=== PATIENT | female | born 1955 | race Caucasian/White ===

== ENCOUNTER 2018-03-13 11:12 | Outpatient (REF) | payer MEDICAID, SELFPAY ==
--- NOTE | 2018-03-13 10:00 | PAPFT_PTH ---
PATIENT: Brooke Urrutia LOC: [facility]#:[id number] AGE/SX: 62/F ROOM: RE03/13/[address]: Jessica Barrera : 1955 BED: DIS: 03/13/2018 SPEC #: [id number] RECD: 03/14/18 12:43 STATUS: [place] #: [id number] JAREN: 03/13/18 10:[address]: Jessica Elizabeth DEPT: COUNT INCLUDES THE [facility] Cytology RECD BY: Danielle Jacome Tissues: 1 - CX/ENDOCX FOR PAP SMEARS Procedures: PAP THIN PREP/UVM Screening HPV DNA PROBE Comments: [id number]
[2018-03-13 22:18] LABS: Cholesterol 170 mg/dL (50-200); HDL Cholesterol 49 mg/dL (40-60); LDL CHOLESTEROL 111 mg/dL (<100); Triglyceride 126 mg/dL (30-150)
== END 2018-03-13 11:32 ==
LOC: NCHCN 11:12
PROVIDERS: PCP Nurse Practitioner Family; Visit Provider Nurse Practitioner Family
DX: Z13.220 Encounter for screening for lipoid disorders (principal); Z00.00 Encounter for general adult medical examination without abnormal findings; Z12.4 Encounter for screening for malignant neoplasm of cervix; Z11.51 Encounter for screening for human papillomavirus (HPV)
CPT/HCPCS: 80061; 83721; 88142; 87624

== ENCOUNTER 2024-01-17 09:05 | Outpatient (REF) | payer MEDICARE, SELFPAY ==
[2024-01-17 14:53] LABS: HCT 40.3 % (36.0-46.0); HGB 12.9 g/dL (11.2-15.7); MCH 28.5 pg (27.0-33.0); MCV 89 fL (80-95); Platelet Count 235 10^3/uL (130-400); RBC 4.52 10^6/uL (3.93-5.22); RDW 13.4 % (11.7-14.6); RDW-SD 44.2 fL; WBC 6.87 10^3/uL (4.4-10.8)
[2024-01-17 15:13] LABS: ALT 30 U/L (14-59); AST 17 U/L (15-37); Albumin 3.6 g/dL (3.4-5.0); Alkaline Phosphatase 88 U/L (46-116); Anion Gap 10.2 mmol/L (3-11); BUN 15 mg/dL (7-18); Bilirubin, Total 0.46 mg/dL (0.2-1.0); CO2 26.8 mmol/L (21.0-32.0); CREATININE 0.9 mg/dL (0.55-1.02); Calcium 8.3 mg/dL (8.5-10.1); Calculated LDL 93 mg/dL (<100); Chloride 106 mmol/L (98-107); Cholesterol 167 mg/dL (<200); Glucose 81 mg/dL (74-106); HDL Cholesterol 60 mg/dL (40-60); Potassium 4.1 mmol/L (3.5-5.1); Sodium 143 mmol/L (136-145); Total Protein 6.9 g/dL (6.4-8.2); Triglyceride 72 mg/dL (<150)
== END 2024-01-17 09:06 | disposition home or self-care (01) ==
LOC: NCHCN 09:05
PROVIDERS: PCP Nurse Practitioner Family; Visit Provider Nurse Practitioner Family
DX: Z00.00 Encounter for general adult medical examination without abnormal findings (principal)
CPT/HCPCS: 80053; 80061; 85027; 84443

== ENCOUNTER 2024-02-03 15:20 | Outpatient (REF) | payer MEDICARE, SELFPAY ==
--- NOTE | 2024-02-03 10:30 | PAPFT_PTH ---
PATIENT: Brooke Urrutia LOC: [facility]#:[id number] AGE/SX: 68/F ROOM: RE02/03/[address]: Jessica Barrera : 1955 BED: DIS: 02/03/2024 SPEC #: [id number] RECD: 02/03/24 18:01 STATUS: [place] REQ #: [id number] JAREN: 02/03/24 10:[address]: Jessica Elizabeth DEPT: [facility] Cytology RECD BY: Danielle Jacome Tissues: 1 - CX/ENDOCX FOR PAP SMEARS Procedures: PAP THIN PREP/UVM Screening HPV DNA PROBE Comments: [id number] (HPV 16 & 18/45)
== END 2024-02-03 15:21 | disposition home or self-care (01) ==
LOC: NCHCN 15:20
PROVIDERS: PCP Nurse Practitioner Family; Visit Provider Nurse Practitioner Family
DX: Z12.4 Encounter for screening for malignant neoplasm of cervix (principal); B96.29 Other Escherichia coli [E. coli] as the cause of diseases classified elsewhere; R82.89 Other abnormal findings on cytological and histological examination of urine
CPT/HCPCS: 88142; 87624

== ENCOUNTER 2024-03-31 16:19 | Outpatient (REF) | payer MEDICARE, SELFPAY ==
[2024-03-31 15:19] LABS: Anion Gap 5.6 mmol/L (3-11); BUN 12 mg/dL (7-18); CO2 28.4 mmol/L (21.0-32.0); CREATININE 0.9 mg/dL (0.55-1.02); Calcium 8.7 mg/dL (8.5-10.1); Chloride 104 mmol/L (98-107); Glucose 65 mg/dL (74-106); Magnesium 2.2 mg/dL (1.8-2.4); PHOSPHORUS 4.4 mg/dL (2.6-4.7); Potassium 3.7 mmol/L (3.5-5.1); Sodium 138 mmol/L (136-145); Vitamin D 25 Total 34.9 ng/mL (30-100)
--- OUTSIDE RECORDS SUMMARY | 2024-03-31 16:35 | XMS_ITS ---
Author Organization Unknown Address [address] [place] [phone] Phone Care Team Providers Care Scientific Artist Name Role Phone TYLER Feldman Attending Unavailable Results MM SCREENING BILAT MAMMO W T BRIA W CAD* - Completed: 12/11/2023 15:38 LOINC: [facility] [place], [place] [address] RADIOLOGY VEGETABLE GRADER REPORT Patient Name: MARIA ESTHER CASTILLO MRN: Sex: : Age: [id number] F 1955 68 Account: Accession: Admit: StayType: [id number] 12/11/2023 O Ordered: Order ID: Submitted: Ordering Provider: 12/11/2023 15:21 [id number] KT DORIE SCOTT Completed: Technologist: Resulted: 12/11/2023 15:29 [facility] 12/12/2023 11:13 EXAMINATION: MM SCREENING BILAT MAMMO W ASH W CAD REASON FOR EXAM: Screening baseline TECHNIQUE: CC and MLO views were obtained of BOTH breasts. 2D and 3D tomosynthesis images were obtained. Computer aided detection was used. COMPARISON: This is a baseline study. BREAST DENSITY: The breast tissue is heterogeneously dense, which may obscure small masses. FINDINGS: Linear calcifications within the lower inner left breast, benign in appearance. Stable parenchymal pattern without suspicious microcalcifications, discrete masses, architectural distortion or significant asymmetry. IMPRESSION: No mammographic evidence of malignancy. Routine screening mammography is recommended. FINAL ASSESSMENT: BI-RADS Category 2: Benign * Regular screening mammograms starting at age 40 reduce the risk of from breast cancer. * Individuals should discuss the risks and benefits with their provider to determine their preferred breast cancer screening schedule, and at what age screening should stop. * Individuals should report any breast changes to a health care provider right away. * Some Individuals, because of their family history, a genetic tendency, or other factors, should consider being screened with annual breast MRI as well as with mammograms. * Screening mammography may not detect 10-15% of?breast cancers. Thank you for letting us participate in the care of this patient. If you are a health care provider and have any questions regarding this report, please contact the number below. For patients who have questions please contact the health care services manager that requested your imaging first. Electronically signed by: Carolina Ibanez [facility] ([phone]), at 12/12/2023 11:13 AM Social History Type Status Start Date End Date Code Code Syst em Smoking History Never smoker (Never Smoked) [id number] SNOMED CT Sex Female Hospital Discharge Instructions Should you have any questions prior to discharge, please contact a member of your healthcare team. If you have left the hospital and have any questions, please contact your primary care physician. Reason For Referral No Data Found Allergies and Adverse Reactions Allergy Substance Reaction Severity Start Date Concern Status Code Code System PENICILLINS (CLASS) UNKNOWN (SNOMED-CT: null) Active 89293 RxNorm ERYTHROMYCIN UNKNOWN (SNOMED-CT: null) Active 4053 RxNorm SULFA (SULFONAMIDE ANTIBIOTICS) UNKNOWN (SNOMED-CT: null) Active Plan of Treatment BONE DENSITY DEXA SPINE & HIP 4 MM SCREEN BILAT 12/11/2023 Encounters Encounter Diagnosis Start Date Code Code Sys tem Encounter for screening mamm ogram for malignant neoplasm of breast 12/11/2023 SNOMED-CT Personal Care Team Section Performer Name Performer Role Active Date Inactive Da te
--- OUTSIDE RECORDS SUMMARY | 2024-03-31 16:35 | XMS_ITS | Encounter Summary ---
Author Organization [facility] [place] [address] Care Team Providers Care Nurse Practitioner Name Role Phone Unavailable Primary Care Provider Unavailabl e Encounter Details Date Type Department Care Team (Late st Contact Info) Description 03/18/2024 Interpretation Only [facility] [place] [facility] in [address] [phone] Jessica Elizabeth APRN [address] [place] [address] Social History Tobacco Use Types Packs/Day Years Used Date Smoking Tobacco: Never Assessed Sex and Gender Information Value Date Recorded Sex Assigned at Not on file Gender Identity Not on file Sexual Orientation Not on file documented as of this encounter Plan of Treatment Not on file documented as of this encounter Procedures Procedure Name Priority Date/Time Associated Diagnosis Comments DXA CENTRAL SPINE, HIP, AND/OR WHOLE BODY (GENERIC) Routine 03/18/2024 9:04 AM EST documented in this encounter Results * DXA Central Spine, Hip, and/or Whole Body (Generic) (03/18/2024 9:04 AM EST) PT CLASS O RAD ADMITDTTM [id number] RAD PT RAD INFO [id number]^ROQUE RG^JESSICA^B RAD EXAM DESC XDXAC^BD DXA BONE DENSITY HIP AND SPINE^RIS RAD WORKSTATION ID [id number] RAD Anatomical Region Laterality Modality C-spine, Hip N/A Radiographic Priscila ging Impressions 03/18/2024 10:53 AM EST -3.5. IMPRESSION: Osteoporotic at both the left femoral neck and lumbar spine. Baseline evaluation for us. ___ Prevent Fractures! PATIENTS NOT ON TREATMENT: For patients with osteopenia, *the fracture risk calculated by FRAX is displayed below*. Offer treatment for osteoporosis (calcium, vitamin D, and medication) if: * ??T less than or equal to -2.5, after excluding or treating secondary causes * ??FRAX gives a 10-year risk of hip fracture greater than or equal to 3% or major osteoporotic fracture (MOF) greater than or equal to 20% * ??Fragility fracture, regardless of T score (fracture without trauma, or from trauma equivalent to falling from standing height or less) If not treating, repeat DXA at the following intervals: * ??T greater than or equal to -1(normal): Repeat DXA in 10-15 years * ??T -1.0 to -1.5 (mild osteopenia): Repeat DXA in 10-15 years * ??T -1.5 to 2.0 (moderate osteopenia): Repeat DXA in 5 years * ??T -2.0 to -2.5 (severe osteopenia): Repeat DXA in 2 years The bone density raw data are listed below. Bone density raw data: Thank you for letting us participate in the care of this patient. ??If you are a health care provider and have any questions regarding this report, please contact the number below. ??For patients who have questions please contact the health healthcare risk control consultant that requested your imaging first. ? Electronically signed by: Bernardino Aparicio MD, [facility] ([phone]), at 03/18/2024 10:53 AM Narrative 03/18/2024 10:53 AM EST EXAMINATION: BD DXA BONE DENSITY HIP AND SPINE CLINICAL HISTORY: ??Reason for Spine: ??Menopausal Add'l Info: TECHNIQUE: Scans were acquired at the lumbar spine, left hip hip. COMPARISON: None FINDINGS: Bone density at the left femoral neck. Measured 0.519 g/sq cm, correlating with an osteoporotic T score of -3.0. The L1-L4 BMD is 0.660 g/sq cm, correlating with an osteoporotic T score of Procedure Note Bernardino Aparicio MD - 03/18/2024 EXAMINATION: BD DXA BONE DENSITY HIP AND SPINE CLINICAL HISTORY: Reason for Spine: Menopausal Add'l Info: TECHNIQUE: Scans were acquired at the lumbar spine, left hip hip. COMPARISON: None FINDINGS: Bone density at the left femoral neck. Measured 0.519 g/sq cm, correlating with an osteoporotic T score of -3.0. The L1-L4 BMD is 0.660 g/sq cm, correlating with an osteoporotic T scoreof IMPRESSION -3.5. IMPRESSION: Osteoporotic at both the left femoral neck and lumbar spine. Baselineevaluation for us. ___ Prevent Fractures! PATIENTS NOT ON TREATMENT: For patients with osteopenia, *the fracture risk calculated by FRAX isdisplayed below*. Offer treatment for osteoporosis (calcium, vitamin D, and medication)if: * T less than or equal to -2.5, after excluding or treating secondarycauses * FRAX gives a 10-year risk of hip fracture greater than or equal to 3%or major osteoporotic fracture (MOF) greater than or equal to 20% * Fragility fracture, regardless of T score (fracture without trauma, orfrom trauma equivalent to falling from standing height or less) If not treating, repeat DXA at the following intervals: * T greater than or equal to -1(normal): Repeat DXA in 10-15 years * T -1.0 to -1.5 (mild osteopenia): Repeat DXA in 10-15 years * T -1.5 to 2.0 (moderate osteopenia): Repeat DXA in 5 years * T -2.0 to -2.5 (severe osteopenia): Repeat DXA in 2 years The bone density raw data are listed below. Bone density raw data: Thank you for letting us participate in the care of this patient. If youare a health care provider and have any questions regarding this report,please contact the number below. For patients who have questions please contactthe health healthcare risk control consultant that requested your imaging first. Jessica Elizabeth APRN IMG DEXA ORDERABLES documented in this encounter Visit Diagnoses Not on filedocumented in this encounter
--- OUTSIDE RECORDS SUMMARY | 2024-03-31 16:35 | XMS_ITS | Encounter Summary ---
Author Organization [facility] Address [address] [place] [address] Care Team Providers Care Retail Performance Specialist Name Role Phone Unavailable Primary Care Provider Unavailabl e Encounter Details Date Type Department Care Team (Late st Contact Info) Description 02/04/2024 Lab Requisition [facility] Pathology & Laboratory Medicine - [facility] [address] [place] [address] Jessica Elizabeth, INTERIOR DESIGN PROJECT MANAGER [address] [place], [place] [id number] Encounter for general adult medical examination without abnormal findings Social History Tobacco Use Types Packs/Day Years Used Date Smoking Tobacco: Never Assessed Interpersonal Safety Answer Date Record ed Physically Hurt Never 12/06/2019 Verbally Threaten Not on file 12/06/2019 Comments Unknown Sex and Gender Information Value Date Recorded Sex Assigned at Not on file Legal Sex Female 18:28 EST Gender Identity Not on file Sexual Orientation Not on file documented as of this encounter Plan of Treatment Not on file documented as of this encounter Procedures Procedure Name Priority Date/Time Associated Diagnosis Comments PAP TEST Today 02/03/2024 10:30 EDT Encounter for general adult medical examination without abnormal findings HPV DNA DETECTION WITH GENOTYPING, PCR Today 02/03/2024 10:30 EDT Encounter for general adult medical examination without abnormal findings documented in this encounter Results * (ABNORMAL) HPV DNA DETECTION WITH GENOTYPING, PCR (02/03/2024 10:30 EDT) HPV High Risk type 16, PCR Negative Negative 02[facility]13[facility]2024 14:[facility] HPV High Risk type 18, PCR Negative Negative 02/13/2024 14:36 [facility] HPV other High Risk types, PCR Positive(A) Negative 02/13/2024 14:36 [facility] Comment: Positive for one of the following Other High Risk HPV types: ??31,33, 35, 39, 45, 51, 52, 56, 58, 59, 66 and 68. Pap Test CERVIX UTERI STRUCTURE / Unknown 02/03/2024 10:30 EDT 02/12/2024 14:28 EDT us Jessica Elizabeth NP MICROBIOLOGY - GENERAL ORDERA BLES Final Result [facility] [address] [place] [address] * PAP TEST (02/03/2024 10:30 EDT) Specimens A. Cervix and/or Endocervix , ThinPrep Imaging System with Manual Evaluation 02/13/2024 14:36 [facility] Specimen Adequacy Satisfactory for Evaluation - assessment of transformation zone component not applicable ( e.g. atrophy, vaginal sample, hysterectomy) 02/13/2024 14:36 [facility] General Categorization Negative for intraepithelial lesion or malignancy 02/13/2024 14:36 [facility] Attestation . 02/13/2024 14:36 [facility] at 1436 Clinical History SEE BELOW 02/13/20 14:36 [facility] Performing Lab [facility] 02/13/2024 14:36 [facility] Scanned Images 02/13/2024 14:36 [facility] HPV High Risk type 16, PCR Negative 02/13/2024 14:36 [facility] HPV High Risk type 18, PCR Negative 02/13/2024 14:36 [facility] HPV Other High Risk Types, PCR Positive Positive for one of the following Other High Risk HPV types: 31,33, 35, 39, 45, 51, 52, 56, 58, 59, 66 and 68. 02/13/2024 14:36 EDT [facility] Pap Test CERVIX UTERI STRUCTURE / Unknown 02/03/2024 10:30 EDT 02/04/2024 9:32 EDT us Jessica Elizabeth NP PATHOLOGY ORDERABLES Final Re sult [facility] [address] [place] [address] documented in this encounter Visit Diagnoses Diagnosis Encounter for general adult medical examination without abnormal findings Unspecified general medical examination documented in this encounter
--- OUTSIDE RECORDS SUMMARY | 2024-03-31 16:35 | XMS_ITS | Encounter Summary ---
Author Organization [facility] Address [address] [place] [address] Care Team Providers Care Patient Relations Director Name Role Phone Unavailable Primary Care Provider Unavailabl e Reason for Referral * (Routine/Next Available) - Receiving Office to Obtain Authorization Specialty Diagnoses / Procedures Referred By Contac t Referred To Contact Procedures XR OUTSIDE IMAGES DEXA Imaging, External Referral ID Status Reason Start Date Expiration Date Visits Requested Visits Authorized [id number] Receiving Office to Obtain Authorization 4 1 1 Reason for Visit * (Routine/Next Available) - Receiving Office to Obtain Authorization Specialty Diagnoses / Procedures Referred By Contac t Referred To Contact Procedures XR OUTSIDE IMAGES DEXA Imaging, External Referral ID Status Reason Start Date Expiration Date Visits Requested Visits Authorized [id number] Receiving Office to Obtain Authorization 4 1 1 Encounter Details Date Type Department Care Team (Late st Contact Info) Description 1955 Hospital Encounter [facility] Radiology - Main [place] [address] [place] [address] Social History Tobacco Use Types Packs/Day Years [...] Procedure Name Priority Date/Time Associated Diagnosis Comments XR OUTSIDE IMAGES DEXA Routine 1955 8:39 EDT documented in this encounter Results * XR OUTSIDE IMAGES DEXA (1955 8:39 EDT) Narrative FRANDY - 03/26/2024 8:40 EST This is a non-reportable exam. us External Imaging IMG OTHER IMAGING ORDERABLES Fi nal Result FRANDY documented in this encounter Visit Diagnoses Not on filedocumented in this encounter
--- OUTSIDE RECORDS SUMMARY | 2024-03-31 16:35 | XMS_ITS | Encounter Summary ---
Author Organization [facility] [place] [address] Care Team Providers Care Finance Manager Name Role Phone Unavailable Primary Care Provider Unavailabl e Encounter Details Date Type Department Care Team (Late st Contact Info) Description 12/11/2023 Interpretation Only [facility] in [address] [phone] Jessica Elizabeth APRN [address] [place] [address] Social History Tobacco Use Types Packs/Day Years Used Date Smoking Tobacco: Never Assessed Sex and Gender Information Value Date Recorded Sex Assigned at Not on file Gender Identity Not on file Sexual Orientation Not on file documented as of this encounter Plan of Treatment Not on file documented as of this encounter Procedures Procedure Name Priority Date/Time Associated Diagnosis Comments MAMMO SCREENING CAD AND JERMAINE BILATERAL Routine 12/11/2023 3:38 PM EDT documented in this encounter Results * Mammo Screening Cad and Jermaine Bilateral (12/11/2023 3:38 PM EDT) PT CLASS O RAD ADMITDTTM [id number] RAD PT RAD MD INFO [id number]^WOHLBE RG^JESSICA^B RAD EXAM DESC MADDSCTO^MM SCREENING BILAT MAMMO W JERMAINE W CAD^RIS RAD WORKSTATION ID [id number] RAD Anatomical Region Laterality Modality Breast Bilateral Mammography Impressions 12/12/2023 11:13 AM EDT No mammographic evidence of malignancy. Routine screening mammography is recommended. FINAL ASSESSMENT: BI-RADS Category 2: Benign * ??Regular screening mammograms starting at age 40 reduce the risk of from breast cancer. * ??Individuals should discuss the risks and benefits with their provider to determine their preferred breast cancer screening schedule, and at what age screening should stop. * ??Individuals should report any breast changes to a health care provider right away. * ??Some Individuals, because of their family history, a genetic tendency, or other factors, should consider being screened with annual breast MRI as well as with mammograms. * ??Screening mammography may not detect 10-15% of?breast cancers. Thank you for letting us participate in the care of this patient. ??If you are a health care provider and have any questions regarding this report, please contact the number below. ??For patients who have questions please contact the health summer child caregiver that requested your imaging first. ? Electronically signed by: Carolina Ibanez [facility] ([phone]), at 12/12/2023 11:13 AM Narrative 12/12/2023 11:13 AM EDT EXAMINATION: MM SCREENING BILAT MAMMO W JERMAINE ??W CAD REASON FOR EXAM: Screening baseline TECHNIQUE: [...] discrete masses, architectural distortion or significant asymmetry. Procedure Note Carolina Ibanez MD - 12/12/2023 EXAMINATION: MM SCREENING BILAT MAMMO W JERMAINE W CAD REASON FOR EXAM: Screening baseline TECHNIQUE: CC and MLO views were obtained of BOTH breasts. 2D and 3D tomosynthesis images were obtained. Computer aided detection was used. COMPARISON: This is a baseline study. BREAST DENSITY: The breast tissue is heterogeneously dense, which may obscure smallmasses. FINDINGS: Linear calcifications within the lower inner left breast, benign inappearance. Stable parenchymal pattern without suspicious microcalcifications,discrete masses, architectural distortion or significant asymmetry. IMPRESSION No mammographic evidence of malignancy. Routine screening mammography is recommended. FINAL ASSESSMENT: BI-RADS Category 2: Benign * Regular screening mammograms starting at age 40 reduce the risk ofdeath from breast cancer. * Individuals should discuss the risks and benefits with their providerto determine their preferred breast cancer screening schedule, and at whatage screening should stop. * Individuals should report any breast changes to a health care providerright away. * Some Individuals, because of their family history, a genetic tendency,or other factors, should consider being screened with annual breast MRI aswell as with mammograms. * Screening mammography may not detect 10-15% of?breast cancers. Thank you for letting us participate in the care of this patient. If youare a health care provider and have any questions regarding this report,please contact the number below. For patients who have questions please contactthe health summer child caregiver that requested your imaging first. Electronically signed by: Carolina Ibanez [facility]([phone]), at 12/12/2023 11:13 AM Jessica Elizabeth APRN IMG MAMMO ORDERABLE S documented in this encounter Visit Diagnoses Not on filedocumented in this encounter
--- OUTSIDE RECORDS SUMMARY | 2024-03-31 16:35 | XMS_ITS | Clinical Summary ---
Author Organization [facility] [place] [address] Care Team Providers Care Social And Political Studies Professor Name Role Phone Unavailable Primary Care Provider Unavailabl e Encounters Date Type Department Care Team Description 03/18/2024 Interpretation Only [facility] in [address] [phone] Jessica Elizabeth APRN from Last 3 Months Social History Tobacco Use Types Packs/Day Years Used Date Smoking Tobacco: Never Assessed Sex and Gender Information Value Date Recorded Sex Assigned at Not on file Gender Identity Not on file Sexual Orientation Not on file Plan of Treatment Health Maintenance Due Date Last Done Comments CT Colonography 1955 Colonoscopy 1955 Colorectal Cancer Screening 1955 FIT DNA 1955 FIT 1955 Sigmoidoscopy (10 year) with FIT yearly 1955 Sigmoidoscopy 1955 Hepatitis C Screening 1972 Tetanus/Diphtheria/Pertussis Vaccines (1 - Tdap) 10/17 Breast Cancer Share Decision Needed 1994 Zoster vaccine (1 of 2) 2004 Advance Directive 2009 Pneumoccocal Vaccine: 65+ (1 of 1 - PCV) 10/18/2019 Covid-19 Vaccine (1 - 2023-25 season) 2024 Influenza (Flu) vaccine (1 o f 1 - Influenza standard series) 01/05/2024 Breast Cancer screening 12/10/2025 12/11/2023 Bone Density Scan 03/18/2039 03/18/2024 Procedures Procedure Name Priority Date/Time Associated Diagnosis Comments DXA CENTRAL SPINE, HIP, AND/OR WHOLE BODY (GENERIC) Routine 03/18/2024 9:04 AM EST MAMMO SCREENING CAD AND ASH BILATERAL Routine 12/11/2023 3:38 PM EDT from Last 3 Months or Most Recently Relevant to Health Maintenance Results * DXA Central Spine, Hip, and/or Whole Body (Generic) (03/18/2024 9:04 AM EST) PT CLASS O RAD ADMITDTTM [id number] RAD PT RAD INFO [id number]^WOHLBE RG^JESSICA^B RAD EXAM DESC XDXAC^BD DXA BONE [...] who have questions please contact the health rn progressive care unit that requested your imaging first. ? Electronically signed by: Bernardino Aparicio MD, [facility] ([phone]), at 03/18/2024 10:53 AM Narrative 03/18/2024 10:53 [...] patients who have questions please contactthe health rn progressive care unit that requested your imaging first. Electronically signed by: Bernardino Aparicio MD [facility]([phone]), at 03/18/2024 10:53 AM Jessica Elizabeth BENCH GRINDER IMG DEXA ORDERABLES * Mammo Screening Cad and Ash Bilateral (12/11/2023 3:38 PM EDT) PT CLASS O RAD ADMITDTTM [id number] RAD PT RAD INFO [id number]^WOHLBE RG^JESSICA^B DH RAD EXAM DESC MADDSCTO^MM SCREENING BILAT MAMMO W ASH W CAD^RIS RAD WORKSTATION ID [id number] RAD [...] who have questions please contact the health rn progressive care unit that requested your imaging first. ? Electronically signed by: Carolina Ibanez [facility] ([phone]), at 12/12/2023 11:13 AM Narrative 12/12/2023 11:13 AM EDT EXAMINATION: MM SCREENING BILAT MAMMO W ASH ??W CAD REASON FOR EXAM: Screening baseline [...] 12/12/2023 EXAMINATION: MM SCREENING BILAT MAMMO W ASH [...] patients who have questions please contactthe health rn progressive care unit that requested your imaging first. Electronically signed by: Carolina Ibanez [facility]([phone]), at 12/12/2023 11:13 AM Jessica Elizabeth BENCH GRINDER IMG MAMMO ORDERABLE S from Last 3 Months or Most Recently Relevant to Health Maintenance
--- OUTSIDE RECORDS SUMMARY | 2024-03-31 16:35 | XMS_ITS | Encounter Summary ---
Author Organization [facility] Address [address] [place] [address] Care Team Providers Care Accounts Payable Bookkeeper Name Role Phone Unavailable Primary Care Provider Unavailabl e Encounter Details Date Type Department Care Team (Late st Contact Info) Description 03/13/2018 Results Only [facility] [phone] Jessica Scott, FINGERPRINT TECHNICIAN [address] [place] [address] Social History Tobacco Use Types Packs/Day Years Used Date Smoking Tobacco: Never Assessed Comments Unknown Sex and Gender Information Value Date Recorded Sex Assigned at Not on file Legal Sex Female 18:28 EST Gender Identity Not on file Sexual Orientation Not on file documented as of this encounter Plan of Treatment Not on file documented as of this encounter Procedures Procedure Name Priority Date/Time Associated Diagnosis Comments PAP TEST- RESULT ONLY Routine 03/13/2018 0:00 EST documented in this encounter Results * PAP TEST- RESULT ONLY (03/13/2018 0:00 EST) Pathology Report: CYTOPATHOLOGY REPORT Reports generated via electronic interface contain original data; however they are lacking the format of the original report. Caution should be taken when reading/interpreti ng unformatted reports. Name: ? BROOKE CASTILLO ? Accession #: ? [id number] ? : ? 1955 (Age: 62) ??F ?Collect Date: ? 03/13/2018 ? Location: ? [facility] ? Receive Date: ? 03/17/2018 ? Provider: JESSICA SCOTT FINGERPRINT TECHNICIAN Copy to: ? Final Report SPECIMEN ADEQUACY ? Satisfactory for Evaluation - transformation zone component present GENERAL CATEGORIZATION ? Negative for Intraepithelial Lesion or Malignancy INTERPRETATION ? Reactive cellular changes associated with inflammation present (includes repair). Last Menstrual Period: 15 years ago Hormonal/Contracep tive status: SONY Exposure: Daughter Other: Additional clinical information: Z00.00 Z12.4 Specimen/Source: ??Pap Test, Cervix, ThinPrep Imaging System with manual evaluation Document reviewed and electronically signed by: ? BABITA SANTOS MD ? Report ??Date: 03/28/2018 11:51 HPV with Pap Test ? Date Ordered: ? 03/28/2018 ? Status: ?? Signed Out ?Date Complete: ? 03/31/2018 ? By: ??System Interface ? Date Reported: ? 03/31/2018 ? Interpretation RESULT: POSITIVE FOR HIGH OR INTERMEDIATE RISK HPV. E6 OR E7 mRNA from one or more types of HPV types 16,18,31, 33,35,39,45,51,52, 56,58,59,66, and 68 is detected by parole director mediated amplification. High and intermediate risk HPV types are associated with most squamous intraepithelial lesions and cervical cancers. Comments Document reviewed and electronically signed by: ? System Interface ? Report date: 03/31/2018 By the signature above, the attending physician certifies that he/she has personally conducted a gross and/or microscopic examination of the described specimens and rendered or confirmed the above diagnosis. End of Report [facility] 03/13/2018 03/17/2018 us Jessica Scott NP PATHOLOGY ORDERABLES Final Re sult [facility] [address] [place] [address] documented in this encounter Visit Diagnoses Not on filedocumented in this encounter
--- OUTSIDE RECORDS SUMMARY | 2024-03-31 16:35 | XMS_ITS | Encounter Summary ---
Author Organization [facility] Address [address] [place] [address] Care Team Providers Care Business Law Teacher Name Role Phone Unavailable Primary Care Provider Unavailabl e Encounter Details Date Type Department Care Team (Late st Contact Info) Description 02/05/2014 Results Only [facility] Laboratory Services - [facility] ([facility]) [address], [place] [phone] Jessica Scott, RESEARCH SOIL SCIENTIST [address] [place], [place] [phone] Social History Tobacco Use Types Packs/Day Years [...] Diagnosis Comments PAP TEST- RESULT ONLY Routine 02/05/2014 0:00 EDT documented in this encounter Results * PAP TEST- RESULT ONLY (02/05/2014 0:00 EDT) Pathology Report: CYTOPATHOLOGY REPORT Reports generated via electronic interface contain original data; however they are lacking the format of the original report. Caution should be taken when reading/interpreti ng unformatted reports. Name: ? BROOKE CASTILLO ? Accession #: ? [id number] : ? 1955 (Age: 58) ??F ?Collect Date: ? 02/05/2014 Location: ? [facility] ? Receive Date: ? 02/08/2014 Provider: ?JESSICA SCOTT RESEARCH SOIL SCIENTIST Copy to: ? Specimen/Source: ?Pap Test, Cervix/Endocervix, ThinPrep Imaging System with manual evaluation Last Menstrual Period: ? 2006 Previous Gynecologic Pathology: ? Yes: Abnormal Pap x 1 25 yrs ago, nl since ? SPECIMEN ADEQUACY ? Satisfactory for Evaluation - transformation zone component present GENERAL CATEGORIZATION ? Negative for Intraepithelial Lesion or Malignancy INTERPRETATION ? Reactive cellular changes associated with inflammation present (includes repair). ? COMMENT ? Atrophy. ? Document reviewed and electronically signed by: ? GOKUL ESPINOSA MD ? Report Date: ??02/16/2014 14:56 End of Report [facility] 02/05/2014 02/08/2014 us Jessica Scott NP PATHOLOGY ORDERABLES Final Re sult [facility] [address] [place] [address] documented in this encounter Visit Diagnoses Not on filedocumented in this encounter
--- OUTSIDE RECORDS SUMMARY | 2024-03-31 16:35 | XMS_ITS | Encounter Summary ---
Author Organization [facility] [place] [facility] Address [address] [place] [address] Care Team Providers Care Damper Maker Name Role Phone Unavailable Primary Care Provider Unavailabl e Encounter Details Date Type Department Care Team (Late st Contact Info) Description 03/31/2024 Lab Requisition [facility] Pathology & Laboratory Medicine - [facility] [address], [place] [id number] Outr Resulting Lab, Provider Social History Tobacco Use Types Packs/Day Years [...] as of this encounter Plan of Treatment Scheduled Orders Name Type Priority Associated Diagnoses Orde r Schedule CELIAC DISEASE PANEL Lab Routine Orde red: 03/31/2024 PTH INTACT Lab Routine Ordered: 03/31 SPEP, INCLUDES QUANTITATION OF MONOCLONAL SPIKE Lab Routine Ordered: 2023 PROTEIN, TOTAL Lab Today Ordered: 1 05/31/2023 SPEP, INCLUDES QUANTITATION OF MONOCLONAL SPIKE PERFORMABLE Lab Today Ord ered: 03/31/2024 documented as of this encounter Visit Diagnoses Not on filedocumented in this encounter
--- OUTSIDE RECORDS SUMMARY | 2024-03-31 16:35 | XMS_ITS ---
Author Organization Unknown Address [address] [place] [phone] Phone Care Team Providers Care Rfp Writer Name Role Phone TYLER Feldman Attending Unavailable Results BD DXA BONE DENSITY HIP AND SPINE - Completed: 03/18/2024 09:04 LOINC: [facility] [place], [place] [address] RADIOLOGY TYPESETTER APPRENTICE REPORT Patient Name: MARIA ESTHER CSATILLO MRN: Sex: : Age: [id number] F 1955 68 Account: Accession: Admit: StayType: [id number] 03/18/2024 O Ordered: Order ID: Submitted: Ordering Provider: 03/18/2024 08:18 [id number] KT DORIE SCOTT Completed: Technologist: Resulted: 03/18/2024 08:32 DA 03/18/2024 10:53 EXAMINATION: BD DXA BONE DENSITY HIP AND SPINE CLINICAL HISTORY: Reason for Spine: Menopausal Add'l Info: TECHNIQUE: Scans were acquired at the lumbar spine, left hip hip. COMPARISON: None FINDINGS: Bone density at the left femoral neck. Measured 0.519 g/sq cm, correlating with an osteoporotic T score of -3.0. The L1-L4 BMD is 0.660 g/sq cm, correlating with an osteoporotic T score of -3.5. IMPRESSION: Osteoporotic at both the left femoral neck and lumbar spine. Baseline evaluation for us. ___ Prevent Fractures! PATIENTS NOT ON TREATMENT: For patients with osteopenia, *the fracture risk calculated by FRAX is displayed below*. Offer treatment for osteoporosis (calcium, vitamin D, and medication) if: * T less than or equal to -2.5, after excluding or treating secondary causes * FRAX gives a 10-year risk of [...] have questions please contact the health healthcare manager that requested your imaging first. Electronically signed by: Bernardino Aparicio MD [facility] ([phone]), at 03/18/2024 10:53 AM Social History Type Status Start Date End Date Code Code Syst em Smoking History Never smoker (Never Smoked) [id number] SNOMED CT Sex Female Hospital Discharge Instructions [...] System PENICILLINS (CLASS) UNKNOWN (SNOMED-CT: null) Active 99246 RxNorm ERYTHROMYCIN UNKNOWN (SNOMED-CT: null) Active 4053 RxNorm SULFA (SULFONAMIDE ANTIBIOTICS) UNKNOWN (SNOMED-CT: null) Active Plan of Treatment BONE DENSITY DEXA SPINE & HIP 4 MM SCREEN BILAT 12/11/2023 Encounters Encounter Diagnosis Start Date Code Code Sys tem Osteoporosis 03/18/2024 [id number] SNOMED-CT Personal Care Team Section Performer Name Performer Role Active Date Inactive Da te
--- OUTSIDE RECORDS SUMMARY | 2024-03-31 16:35 | XMS_ITS | Clinical Summary ---
Author Organization [facility] Address [address] [place] [address] Care Team Providers Care Physician Credentialing Specialist Name Role Phone Unavailable Primary Care Provider Unavailabl e Encounters Date Type Department Care Team Description 03/31/2024 Lab Requisition [facility] Pathology & Laboratory [address] [address] Outr Resulting Lab, Provider 02/04/2024 Lab Requisition [facility] Pathology & Laboratory [address] [address] Jessica Elizabeth NP Encounter for general adult medical examination without abnormal findings from Last 3 Months Social History Tobacco [...] Health Maintenance Due Date Last Done Comments Hepatitis C Screen 1955 Fall Risk Screening 10/18/2019 COVID-19 Vaccine ( season) 2024 RSV Immunization ( o r 60+ Years) (1 - 1-dose 75+ series) 2029 Procedures Procedure Name Priority Date/Time Associated Diagnosis Comments PAP TEST Today 02/03/2024 10:30 EDT Encounter for general adult medical examination without abnormal findings HPV DNA DETECTION WITH GENOTYPING, PCR Today 02/03/2024 10:30 EDT Encounter for general adult medical examination without abnormal findings from Last 3 Months Results * PAP TEST (02/03/2024 10:30 EDT) Specimens A. Cervix and/or Endocervix , ThinPrep Imaging System with Manual Evaluation 02/13/2024 14:36 [facility] Specimen Adequacy Satisfactory for Evaluation - assessment of transformation zone component not applicable ( e.g. atrophy, vaginal sample, hysterectomy) 02/13/2024 14:36 [facility] General Categorization Negative for intraepithelial lesion or malignancy 02/13/2024 14:36 [facility] Attestation . 02/13/2024 14:36 [facility] at 1436 Clinical History SEE BELOW 02/13/20 14:36 [facility] Performing Lab [facility] 02/13/2024 14:36 [facility] Scanned Images 02/13/2024 14:36 [facility] HPV High Risk type 16, PCR Negative 02/13/2024 14:36 [facility] HPV High Risk type 18, PCR Negative 02/13/2024 14:36 [facility] HPV Other High Risk Types, PCR Positive Positive for one of the following Other High Risk HPV types: 31,33, 35, 39, 45, 51, 52, 56, 58, 59, 66 and 68. 02/13/2024 14:36 [facility] Pap Test CERVIX UTERI STRUCTURE / Unknown 02/03/2024 10:30 EDT 02/04/2024 9:32 EDT us Jessica Elizabeth NP PATHOLOGY ORDERABLES Final Re sult [facility] [address] [place] [address] * (ABNORMAL) HPV DNA DETECTION WITH GENOTYPING, PCR (02/03/2024 10:30 EDT) HPV High Risk type 16, PCR Negative Negative 02/13/2024 14:36 EDT [facility] HPV High Risk type 18, PCR Negative Negative 02/13/2024 14:36 EDT [facility] HPV other High Risk types, PCR Positive(A) Negative 02/13/2024 14:36 EDT [facility] Comment: Positive for one of the following Other High Risk HPV types: ??31,33, 35, 39, 45, 51, 52, 56, 58, 59, 66 and 68. Pap Test CERVIX UTERI STRUCTURE / Unknown 02/03/2024 10:30 EDT 02/12/2024 14:28 EDT us Jessica Elizabeth NP MICROBIOLOGY - GENERAL ORDERA BLES Final Result [facility] [address] [place] [address] from Last 3 Months Insurance [place]ICAID [place]
--- OUTSIDE RECORDS SUMMARY | 2024-03-31 16:35 | XMS_ITS | Referral Summary ---
Author Organization [facility] Address [address] [place] [address] Care Team Providers Care Sales Development Coordinator Name Role Phone Unavailable Primary Care Provider Unavailabl e Encounters Date Type Department Care Team Description 03/31/2024 Lab Requisition [facility] Pathology & Laboratory [address] [address] Outr Resulting Lab, Provider 02/04/2024 Lab Requisition [facility] Pathology & Laboratory [address] [address] Jessica Elizabeth NP Encounter for general adult [...] Orientation Not on file Plan of Treatment Not on file Procedures Procedure Name Priority Date/Time Associated Diagnosis [...] Imaging System with Manual Evaluation 02/13/2024 14:36 EDT [facility] Specimen Adequacy Satisfactory for Evaluation - assessment of transformation zone component not applicable ( e.g. atrophy, vaginal sample, hysterectomy) 02/13/2024 14:36 T [facility] General Categorization Negative for intraepithelial lesion or malignancy 02/13/2024 14:36 [facility] Attestation . 02/13/2024 14:36 [facility] at 1436 Clinical History SEE BELOW 02/13/20 14:36 EDT [facility] Performing Lab [facility] 02/13/2024 14:36 [facility] Scanned Images 02/13/2024 14:36 [facility] HPV High Risk type 16, PCR Negative 02/13/2024 14:36 [facility] HPV High Risk type 18, PCR Negative 02/13/2024 14:36 [facility] HPV Other High Risk Types, PCR Positive Positive for one of the following Other High Risk HPV types: 31,33, 35, 39, 45, 51, 52, 56, 58, 59, 66 and 68. 02/13/2024 14:36 [facility] Pap Test CERVIX UTERI STRUCTURE / Unknown 02/03/2024 10:30 EDT 02/04/2024 9:32 EDT us Jessica Elizabeth NP PATHOLOGY ORDERABLES Final Re sult [facility] [address] [place] [address] * (ABNORMAL) HPV DNA DETECTION WITH GENOTYPING, PCR (02/03/2024 10:30 EDT) HPV High Risk type 16, PCR Negative Negative 02/13/2024 14:36 EDT [facility] HPV High Risk type 18, PCR Negative Negative 02/13/2024 14:36 EDT [facility] HPV other High Risk types, PCR Positive(A) Negative 02/13/2024 14:36 EDT [facility] Comment: Positive for one of the following Other High Risk HPV types: ??31,33, 35, 39, 45, 51, 52, 56, 58, 59, 66 and 68. Pap Test CERVIX UTERI STRUCTURE / Unknown 02/03/2024 10:30 EDT 02/12/2024 14:28 EDT us Jessica Elizabeth NP MICROBIOLOGY - GENERAL ORDERA BLES Final Result [facility] [address] [place] [address] from Last 3 Months Insurance MEDICAID [place]
[2024-03-31 22:34] LABS: Parathyroid Hormone,Intact 54.3 pg/mL (19.0-88.0)
[2024-04-01 11:05] LABS: IgA 199 mg/dL (85-499); Interpretation (See Note); Tissue Transglutaminase IgA <4.0 CU (<20.0)
[2024-04-01 13:05] LABS: Albumin 59.1 % (55.8-66.1); Albumin g/dL 4.6 g/dL (3.6-5.2); Total Protein 7.7 g/dL (6.3-8.2)
== END 2024-03-31 16:20 | disposition home or self-care (01) ==
LOC: NCHCN 16:19
PROVIDERS: PCP Nurse Practitioner Family; Visit Provider Nurse Practitioner Family
DX: M81.0 Age-related osteoporosis without current pathological fracture (principal)
CPT/HCPCS: 80048; 82306; 82784; 83516; 83735; 83970; 84100; 84165

== ENCOUNTER 2025-02-15 16:16 | Outpatient (REF) | payer MEDICARE, SELFPAY ==
--- NOTE | 2025-02-15 16:00 | PAPFT_PTH ---
PATIENT: Brooke Urrutia LOC: [facility]#:[id number] AGE/SX: 69/F ROOM: RE02/15/[address]: Jessica Barrera : 1955 BED: DIS: 02/15/2025 SPEC #: [id number] RECD: 02/16/25 17:13 STATUS: [place] #: [id number] JAREN: 02/15/25 16:[address]: Jessica Elizabeth DEPT: [facility] Cytology RECD BY: Kezia Bhandari Tissues: 1 - CX/ENDOCX FOR PAP SMEARS Procedures: PAP THIN PREP/[facility] Screening HPV DNA PROBE Comments: [id number] (HPV 16 & 18/45)
== END 2025-02-15 16:17 | disposition home or self-care (01) ==
LOC: NCHCN 16:16
PROVIDERS: PCP Nurse Practitioner Family; Visit Provider Nurse Practitioner Family
DX: Z12.4 Encounter for screening for malignant neoplasm of cervix (principal)
CPT/HCPCS: 88142; 87624